=== PATIENT | male | born 1965 | race Caucasian/White ===

== ENCOUNTER 2019-02-11 11:05 | Emergency (ER) | payer SELFPAY ==
[~2019-02-11] VITALS: Ht 180.3 cm; Wt 88.5 kg
[2019-02-11 11:05] VITALS: BP 160/92
[~2019-02-11 11:05] MED LIST: AZIT1PAC9 PO; HYDR-3165 PO; [UNRECOGNIZED DRUG - CODE] PO
--- NOTE | 2019-02-11 11:28 | PHYS DOC ---
Past History Past Medical History: Bronchitis, Sinusitis Past Surgical History: No Surgical History Alcohol Use: None Drug Use: None Adult General Chief Complaint Chief Complaint: BACK PAIN OR INJURY HPI HPI Patient is a 53-year-old male who presents with complaint of primarily tailbone pain after falling from a ladder approximately 30 minutes prior to his arrival. Patient states that he had been up on a ladder cleaning leaves out of a gutter when the ladder started slipped out from underneath him and he had pushed back off the ladder and landed onto his buttocks. He does indicate he has small amount of pain in his lower back but mainly the pain is in his tailbone. He rates pain as fairly severe and states the pain is worsened with movement and walking.[] Review of Systems Review of Systems Constitutional: Denies fever or chills [] Respiratory: Denies cough or shortness of breath [] Cardiovascular: No additional information not addressed in HPI [] GI: Denies abdominal pain [] Musculoskeletal: Complains of tailbone pain [] Integument: Denies rash or skin lesions [] Neurologic: Denies headache, focal weakness or sensory changes [] Physical Exam Physical Exam Constitutional: Well developed, well nourished, no acute distress, non-toxic appearance. [] Neck: Normal range of motion, no tenderness, supple, no stridor. [] Cardiovascular:Heart rate regular rhythm, no murmur [] Lungs & Thorax: Bilateral breath sounds clear to auscultation [] Abdomen: Bowel sounds normal, soft, no tenderness. [] Back: No spinous point tenderness is noted on exam. There is tenderness around the right SI joint and around the sacrococcygeal junction. [] Extremities: No tenderness, no cyanosis, no clubbing, ROM intact, no edema. [] EKG EKG [] Radiology/Procedures Radiology/Procedures [] Impressions: PROCEDURE: CT LUMBAR SPINE WO CONTRAST CT study lumbar spine without contrast Clinical indications: Fall from ladder. Back pain. TECHNIQUE: Noncontrast helical CT scanning of the lumbar spine was performed. Multiplanar 2-D reconstructions were generated. PQRS compliance Statement One or more of the following individualized dose reduction techniques were utilized for this study: 1. Automated exposure control 2. Adjustment of the mA and/or kV according to patient size 3. Use of iterative reconstruction technique FINDINGS: No compression fracture or discitis or lytic process evident. No anterolisthesis or spondylolysis is seen. The transverse processes are intact. No focal disc protrusion or canal stenosis is evident. IMPRESSION: No acute fracture. Electronically signed by: Osman Riggs MD (02/11/2019 12:21 PM) [facility] Course & Med Decision Making Course & Med Decision Making Pertinent Labs and Imaging studies reviewed. (See chart for details) [] Dragon Disclaimer Dragon Disclaimer This electronic medical record was generated, in whole or in part, using a voice recognition dictation system. Departure Departure: Impression: Primary Impression: Contusion of coccyx Disposition: HOME, SELF-CARE Condition: STABLE Referrals: ASHISH BARNHART MD (PCP) Patient Instructions: Tailbone Injury Scripts Diclofenac Sodium (DICLOFENAC SODIUM) 50 Mg Tablet.dr 1 TAB PO BID PRN for PAIN, #20 TAB Prov: KALEB LOPEZ Jr. DO 02/11/19 Acetaminophen With Codeine (TYLENOL WITH CODEINE #3 TABLET) 1 Each Tablet 1 TAB PO Q4-6HRS PRN for PAIN, #12 TAB Prov: KALEB LOPEZ Jr. DO 02/11/19 Problem Qualifiers Primary Impression: Contusion of coccyx Encounter type: initial encounter Qualified Codes: S30.0XXA - Contusion of lower back and pelvis, initial encounter KALEB LOPEZ Jr. DO Feb 11, 2019 11:28
[2019-02-11] MEDS ORDERED: ONDANSETRON ODT 4 MG TAB.RAPDIS PO ONE (11:30)
--- NOTE | 2019-02-11 12:18 | RAD ---
CT stated pelvis without contrast Clinical indications: Fall from ladder. Pain. TECHNIQUE: Noncontrast helical CT scanning of the pelvis was performed. Multiplanar 2-D reconstructions were generated. PQRS compliance Statement One or more of the following individualized dose reduction techniques were utilized for this study: 1. Automated exposure control 2. Adjustment of the mA and/or kV according to patient size 3. Use of iterative reconstruction technique FINDINGS: No acute fracture is evident. The hip joints are symmetric and normally aligned. No diastases of the symphysis pubis or either SI joint is seen. No lytic process is evident. No enlarged pelvic lymphadenopathy is evident. No soft tissue mass or hematoma is evident. IMPRESSION: No acute abnormality. Electronically signed by: Osman Riggs MD (02/11/2019 12:15 PM) [facility]
--- NOTE | 2019-02-11 12:23 | RAD ---
CT study lumbar spine without contrast Clinical indications: Fall from ladder. Back pain. TECHNIQUE: Noncontrast helical CT scanning of the lumbar spine was performed. Multiplanar 2-D reconstructions were generated. PQRS compliance Statement One or more of the following individualized dose reduction techniques were utilized for this study: 1. Automated exposure control 2. Adjustment of the mA and/or kV according to patient size 3. Use of iterative reconstruction technique FINDINGS: No compression fracture or discitis or lytic process evident. No anterolisthesis or spondylolysis is seen. The transverse processes are intact. No focal disc protrusion or canal stenosis is evident. IMPRESSION: No acute fracture. Electronically signed by: Osman Riggs MD (02/11/2019 12:21 PM) [facility]
[2019-02-11] MEDS ORDERED: DICL50TA4 PO (12:32)
[2019-02-11] MEDS ORDERED: ACET-704 PO (12:32)
== END 2019-02-11 12:35 | disposition home or self-care (01) ==
LOC: MERGE 11:05 → ER 11:05
DX: S30.0XXA Contusion of lower back and pelvis, initial encounter (principal); W11.XXXA Fall on and from ladder, initial encounter; Y93.89 Activity, other specified; Y92.89 Other specified places as the place of occurrence of the external cause; Y99.8 Other external cause status
CPT/HCPCS: 72131; 72192; 96372; 99284; J3010; Q0162

== ENCOUNTER 2019-03-22 13:38 | Emergency (ER) | payer SELFPAY ==
[~2019-03-22] VITALS: Ht 180.3 cm; Wt 90.7 kg
[~2019-03-22 13:38] MED LIST changes: +ACET-704 PO; +DICL50TA4 PO
[2019-03-22 13:51] VITALS: BP 157/72
--- NOTE | 2019-03-22 14:01 | PHYS DOC ---
Past History Past Medical History: No Pertinent History Past Surgical History: No Surgical History Alcohol Use: None Drug Use: None Adult General Chief Complaint Chief Complaint: COUGH HPI HPI The patient is a pleasant 53-year-old male who presents for evaluation of cough and congestion which isn't bothering him for a few days. He tried Mucinex at home with little relief. He states the same thing happens to him usually about 2 times per year and that he sees his primary care doctor and as prescribed a Z- Wade, prednisone, and Tessalon Perles and seems to be better. He reports some sunitha al congestion as well. He is alert and oriented �4, calm, and appears to be no distress. He denies productive cough, chest pain, shortness of breath, hemoptysis, diaphoresis, nausea or vomiting, palpitations, dizziness or syncope. Review of Systems Review of Systems Constitutional: Denies fever or chills [] Eyes: Denies change in visual acuity, redness, or eye pain [] HENT: Denies sore throat []nasal congestion present Respiratory: Denies shortness of breath [] positive cough and congestion Cardiovascular: No additional information not addressed in HPI [] GI: Denies abdominal pain, nausea, vomiting, bloody stools or diarrhea [] : Denies dysuria or hematuria [] Musculoskeletal: Denies back pain or joint pain [] Integument: Denies rash or skin lesions [] Neurologic: Denies headache, focal weakness or sensory changes [] Endocrine: Denies polyuria or polydipsia [] All other systems were reviewed and found to be within normal limits, except as documented in this note. Allergies Allergies Allergies Coded Allergies Type Severity Reaction Last Updated Verified No Known Drug Allergies 09/27/15 No Physical Exam Physical Exam Constitutional: Well developed, well nourished, no acute distress, non-toxic appearance. [] HENT: Normocephalic, atraumatic, bilateral external ears normal, oropharynx moist, no oral exudates, nose normal. [] Eyes: PERRLA, EOMI, conjunctiva normal, no discharge. [] Neck: Normal range of motion, no tenderness, supple, no stridor. [] Cardiovascular:Heart rate regular rhythm, no murmur [] Lungs & Thorax: Bilateral breath sounds clear to auscultation []frequent coughing during exam Abdomen: Bowel sounds normal, soft, no tenderness, no masses, no pulsatile masses. [] Skin: Warm, dry, no erythema, no rash. [] Back: No tenderness, no CVA tenderness. [] Extremities: No tenderness, no cyanosis, no clubbing, ROM intact, no edema. [] Neurologic: Alert and oriented X 3, normal motor function, normal sensory function, no focal deficits noted. [] Psychologic: Affect normal, judgement normal, mood normal. [] Current Patient Data Vital Signs Vital Signs Date Time Temp Pulse Resp B/P (MAP) Pulse Ox O2 Delivery O2 Flow Rate FiO2 03/22/19 13:51 98.3 105 18 99 Room Air EKG EKG [] Radiology/Procedures Radiology/[place] [address] IMAGING REPORT Signed PATIENT: SASKIA STINSON ACCOUNT: [id number] : 1965 LOCATION: ER AGE: 53 SEX: M EXAM STATUS: REG ER ORD. PHYSICIAN: PURVI PETERSEN DO REASON: cough PROCEDURE: CHEST PA & LATERAL CHEST PA LATERAL History: Cough Comparison: None. Findings: 2 views of the chest are submitted. There is no dependent pleural fluid or pneumothorax. There is some subtle hazy right base airspace opacity which may be in the right middle lobe. Impression: 1. There is some subtle right base airspace opacity which may be in the right middle lobe, possible very mild infiltrate. Electronically signed by: Gunnar Wagner MD (03/22/2019 2:09 PM) [id number] DICTATED AND SIGNED BY: GUNNAR WAGNER MD DATE: 03/22/19 1409 CC: PURVI PETERSEN DO; ASHISH BARNHART MD ~ Course & Med Decision Making Course & Med Decision Making Pertinent Labs and Imaging studies reviewed. (See chart for details) [] Dragon Disclaimer Dragon Disclaimer This electronic medical record was generated, in whole or in part, using a voice recognition dictation system. Departure Departure: Impression: Primary Impression: Community acquired pneumonia Disposition: 01 HOME/RESIDENCE PRIOR TO ADM Condition: STABLE Referrals: ASHISH BARNHART MD (PCP) Patient Instructions: Pneumonia, Adult Additional Instructions: Take the prescribed medication as directed. Follow-up with your doctor next 2-3 days. Return for new or worsening symptoms. Scripts Prednisone (PREDNISONE) 20 Mg Tablet 1 TAB PO DAILY for cough, #5 TAB Prov: PURVI PETERSEN DO 03/22/19 Benzonatate (TESSALON PERLE) 100 Mg Capsule 1 CAP PO TID for cough, #21 CAP Prov: PURVI PETERSEN DO 03/22/19 Azithromycin (AZITHROMYCIN PACKET) 1 Gm Packet 1 PACKET PO ONCE for pneumonia, #1 PACKET Prov: PURVI PETERSEN DO 03/22/19 PURVI PETERSEN DO Mar 22, 2019 14:01
--- NOTE | 2019-03-22 14:12 | RAD ---
CHEST PA LATERAL History: Cough Comparison: None. Findings: 2 views of the chest are submitted. There is no dependent pleural fluid or pneumothorax. There is some subtle hazy right base airspace opacity which may be in the right middle lobe. Impression: 1. There is some subtle right base airspace opacity which may be in the right middle lobe, possible very mild infiltrate. Electronically signed by: Samy Jensen MD (03/22/2019 2:09 PM) [id number]
[2019-03-22] MEDS ORDERED: AZIT1PAC9 PO (14:41)
[2019-03-22] MEDS ORDERED: BENZ100C PO (14:41)
[2019-03-22] MEDS ORDERED: PRED20TA PO (14:41)
== END 2019-03-22 18:10 | disposition home or self-care (01) ==
LOC: ER 13:38
DX: J18.8 Other pneumonia, unspecified organism (principal)
CPT/HCPCS: 71046; 99284

== ENCOUNTER 2019-04-21 19:11 | Emergency (ER) | payer SELFPAY ==
[~2019-04-21] VITALS: Ht 180.3 cm; Wt 85.0 kg
[2019-04-21 19:11] VITALS: BP 151/89
[~2019-04-21 19:11] MED LIST changes: +BENZ100C PO; +PRED20TA PO
--- NOTE | 2019-04-21 19:23 | ED.ADGEN ---
Past History Past Medical History: No Pertinent History Past Surgical History: No Surgical History Alcohol Use: None Drug Use: None Adult General Chief Complaint Chief Complaint ".. I fractured this tooth. (30). it has got me a going.. why did I break it off now.. I will have to wait all weekend before I can see my dentist.. " HPI HPI Patient is a 54 year old male who presents with above hx and complaints of dental pain. Patient has fractured tooth 30. Patient complaining of severe pain. No pointing abscess. No history immunosuppression. No trismus. Patient normally healthy. Patient denies any travel or specific ill contacts. Patient states he is up-to-date with his tetanus vaccination. Review of Systems Review of Systems Constitutional: Denies fever or chills [] Eyes: Denies change in visual acuity, redness, or eye pain [] HENT: Denies nasal congestion or sore throat []complaints of fracture tooth #30 Respiratory: Denies cough or shortness of breath [] Cardiovascular: No additional information not addressed in HPI [] GI: Denies abdominal pain, nausea, vomiting, bloody stools or diarrhea [] : Denies dysuria or hematuria [] Musculoskeletal: Denies back pain or joint pain [] Integument: Denies rash or skin lesions [] Neurologic: Denies headache, focal weakness or sensory changes [] Endocrine: Denies polyuria or polydipsia [] All other systems were reviewed and found to be within normal limits, except as documented in this note. Family History Family History Noncontributory Current Medications Current Medications Current Medications Medications (Trade) Dose Ordered Sig/[facility] Start Time Stop Time Status Last Admin Dose Admin Cephalexin HCl (Keflex) 500 mg 1X ONCE 04/21/19 20:00 04/21/19 20:06 DC 04/21/19 20:09 500 MG Morphine Sulfate (Morphine 10mg Syringe) 10 mg 1X ONCE 04/21/19 20:00 04/21/19 20:06 DC 04/21/19 20:09 10 MG Allergies Allergies Allergies Coded Allergies Type Severity Reaction Last Updated Verified No Known Drug Allergies 09/27/15 No Physical Exam Physical Exam Constitutional: Well developed, well nourished, in acute distress, non-toxic appearance. [] HENT: Normocephalic, atraumatic, bilateral external ears normal, oropharynx moist, no oral exudates, nose normal. []Fractured tooth #30 no trismus Eyes: PERRLA, EOMI, conjunctiva normal, no discharge. [] Neck: Normal range of motion, no tenderness, supple, no stridor. [] Cardiovascular:Heart rate regular rhythm, no murmur [] Lungs & Thorax: Bilateral breath sounds clear to auscultation [] Abdomen: Bowel sounds normal, soft, no tenderness, no masses, no pulsatile masses. [] Skin: Warm, dry, no erythema, no rash. [] Back: No tenderness, no CVA tenderness. [] Extremities: No tenderness, no cyanosis, no clubbing, ROM intact, no edema. [] Neurologic: Alert and oriented X 3, normal motor function, normal sensory function, no focal deficits noted. [] Psychologic: Affect anxious, judgement normal, mood normal. [] Current Patient Data Vital Signs Vital Signs Date Time Temp Pulse Resp B/P (MAP) Pulse Ox O2 Delivery O2 Flow Rate FiO2 04/21/19 19:11 99.3 93 20 99 Room Air EKG EKG [] Radiology/Procedures Radiology/Procedures [] Course & Med Decision Making Course & Med Decision Making Pertinent Labs and Imaging studies reviewed. (See chart for details) Cover fx tooth with gum or calcium filler., Take Keflex 500 three times a day. Tylenol and ibuprofen for pain. For severe pain may take Vicoprofen up 4 times a day. Patient follow-up with dentist. Return if any concerns. [] Final Impression Final Impression 1. Dental Pain 2. Dental Fracture[] Tooth 30# Dragon Disclaimer Dragon Disclaimer This electronic medical record was generated, in whole or in part, using a voice recognition dictation system. Dragon Disclaimer This chart was dictated in whole or in part using Voice Recognition software in a busy, high-work load, and often noisy Emergency Department environment. It may contain unintended and wholly unrecognized errors or omissions. CRISTIAN GALICIA MD Apr 21, 2019 19:23
[2019-04-21] MEDS ORDERED: CEPH-264 PO (19:51)
[2019-04-21] MEDS ORDERED: HYDR-1179 PO (19:51)
[2019-04-21] MEDS ORDERED: CEPHALEXIN 250 MG CAPSULE PO ONE (20:00)
[2019-04-21] MEDS ORDERED: MORPHINE SULFATE 10 MG/ML SYRINGE. SQ ONE (20:00)
== END 2019-04-21 20:10 | disposition home or self-care (01) ==
LOC: ER 19:11
DX: S02.5XXA Fracture of tooth (traumatic), initial encounter for closed fracture (principal); X58.XXXA Exposure to other specified factors, initial encounter; Y93.89 Activity, other specified; Y92.89 Other specified places as the place of occurrence of the external cause; Y99.8 Other external cause status
CPT/HCPCS: 96372; 99283; J2270

== ENCOUNTER 2019-05-19 17:01 | Emergency (ER) | payer SELFPAY ==
[~2019-05-19] VITALS: Ht 180.3 cm; Wt 90.7 kg
[~2019-05-19 17:01] MED LIST changes: +CEPH-264 PO; +HYDR-1179 PO
[2019-05-19 17:32] VITALS: BP 152/81
[2019-05-19] MEDS ORDERED: HYDROcodone/APAP 5/325MG 1 TAB TABLET PO ONE (18:00)
[2019-05-19] MEDS ORDERED: KETOROLAC 30 MG/ML VIAL. IM ONE (18:00)
--- NOTE | 2019-05-19 18:14 | PHYS DOC ---
Past History Past Medical History: No Pertinent History Past Surgical History: No Surgical History Smoking: Non-smoker Alcohol Use: None Drug Use: None Adult General Chief Complaint Chief Complaint: MECHANICAL FALL HPI HPI Patient is a 54-year-old male presents complaining of tailbone pain. Approximately 60-90 minutes prior to arrival he was helping a neighbor bring an armoire down steps. Patient slipped approximately 4 steps from the bottom, landing on his tailbone on concrete floor. There was no loss of consciousness. No loss of bowel or bladder control. No head injury. No other injuries reported. Increased pain with movement. No home medicines have been taken. Pain is severe and sharp.[] Review of Systems Review of Systems Constitutional: Denies fever or chills [] Eyes: Denies change in visual acuity, redness, or eye pain [] HENT: Denies nasal congestion or sore throat [] Respiratory: Denies cough or shortness of breath [] Cardiovascular: No chest pain or palpitations[] GI: Denies abdominal pain, nausea, vomiting, bloody stools or diarrhea [] : Denies dysuria or hematuria [] Musculoskeletal: See history of present illness[] Integument: Denies rash or skin lesions [] Neurologic: Denies headache, focal weakness or sensory changes [] Endocrine: Denies polyuria or polydipsia [] All other systems were reviewed and found to be within normal limits, except as documented in this note. Current Medications Current Medications Current Medications Medications (Trade) Dose Ordered Sig/[facility] Start Time Stop Time Status Last Admin Dose Admin Acetaminophen/ Hydrocodone Bitart (Lortab 5/325) 2 tab 1X ONCE 05/19/19 18:00 05/19/19 18:09 DC 05/19/19 18:00 2 TAB Ketorolac Tromethamine (Toradol 30mg Vial) 30 mg 1X ONCE 05/19/19 18:00 05/19/19 18:09 DC 05/19/19 18:00 30 MG Allergies Allergies Allergies Coded Allergies Type Severity Reaction Last Updated Verified No Known Drug Allergies 09/27/15 No Physical Exam Physical Exam Constitutional: Well developed, well nourished, moderate distress, pacing, non- toxic appearance. [] HENT: Normocephalic, atraumatic, bilateral external ears normal, oropharynx moist, no oral exudates, nose normal. [] Eyes: PERRLA, EOMI, conjunctiva normal, no discharge. [] Neck: Normal range of motion, no tenderness, supple, no stridor. [] Cardiovascular:Heart rate regular rhythm, no murmur [] Lungs & Thorax: Bilateral breath sounds clear to auscultation [] Abdomen: Bowel sounds normal, soft, no tenderness, no masses, no pulsatile masses. [] Skin: Warm, dry, no erythema, no rash. [] Back: Tender lower sacral/coccygeal region. No bruising. No crepitus. Normal gait. no CVA tenderness. [] Extremities: No tenderness, no cyanosis, no clubbing, ROM intact, no edema. [] Neurologic: Alert and oriented X 3, normal motor function, normal sensory function, no focal deficits noted. [] Psychologic: Affect normal, judgement normal, mood normal. [] Current Patient Data Vital Signs Vital Signs Date Time Temp Pulse Resp B/P (MAP) Pulse Ox O2 Delivery O2 Flow Rate FiO2 05/19/19 18:00 18 Room Air 05/19/19 17:32 99.7 105 98 EKG EKG [] Radiology/Procedures Radiology/Procedures Lumbar spine x-rays 3 views HISTORY: Fall with lower back pain. FINDINGS: Lumbar vertebral body height and alignment intact. No fracture evident. Mild posterior disc space narrowing at L5-S1. Facet spurring lower lumbar spine. IMPRESSION: No acute osseous injury. Lumbosacral disc disease. Lower lumbar spine facet arthritis. Sacrum and coccyx x-rays 3 views HISTORY: Fall, lower back pain and coccyx pain. COMPARISON: X-rays May 10, 2016. 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 No acute fracture. Sacroiliac joints intact. No ankylosis arthrosis or diastases of the sacroiliac joints. Mild facet spurring L4-L5 and L5-S1 lower lumbar spine. IMPRESSION: No acute osseous injury.[] Course & Med Decision Making Course & Med Decision Making Pertinent Labs and Imaging studies reviewed. (See chart for details) ED course: Patient arrived, was placed in bed, and tolerated exam well. He was transported to and from radiology. He was given pain medicines. After the return of the imaging findings, these were discussed with the patient voiced understanding. All questions were answered. He was discharged in improved condition. Medical decision making: There is no evidence of a fracture, cauda equina syndrome, subluxation, nor any other significant impairment.[] Dragon Disclaimer Dragon Disclaimer This electronic medical record was generated, in whole or in part, using a voice recognition dictation system. Departure Departure: Impression: Primary Impression: Sacral contusion Disposition: HOME, SELF-CARE Condition: IMPROVED Referrals: ASHISH BARNHART MD (PCP) Follow-up in 2 days Patient Instructions: Contusion Additional Instructions: Follow-up with your regular doctor in 2 days. Apply warm compresses for 15 minutes at a time, at least 4 times a day. Return to the ER if worsening pain or any other concerns. Scripts Orphenadrine Citrate (ORPHENADRINE CITRATE) 100 Mg Tablet.er 100 MG PO BID for BACK PAIN, #20 TAB.SR Prov: SANDY BRIGHT DO 05/19/19 Hydrocodone Bit/Acetaminophen (NORCO 5-325 TABLET) 1 Each Tablet 1 TAB PO Q4-6HRS for severe pain, #20 TAB Prov: SANDY BRIGHT DO 05/19/19 Meloxicam (MELOXICAM) 7.5 Mg Tablet 7.5 MG PO DAILY for PAIN, #20 TAB Prov: SANDY BRIGHT DO 05/19/19 Problem Qualifiers Primary Impression: Sacral contusion Encounter type: initial encounter Qualified Codes: S30.0XXA - Contusion of lower back and pelvis, initial encounter SANDY BRIGHT DO May 19, 2019 18:14
--- NOTE | 2019-05-19 19:00 | RAD ---
Lumbar spine x-rays 3 views HISTORY: Fall with lower back pain. FINDINGS: Lumbar vertebral body height and alignment intact. No fracture evident. Mild posterior disc space narrowing at L5-S1. Facet spurring lower lumbar spine. IMPRESSION: No acute osseous injury. Lumbosacral disc disease. Lower lumbar spine facet arthritis. Sacrum and coccyx x-rays 3 views HISTORY: Fall, lower back pain and coccyx pain. COMPARISON: X-rays May 10, 2016. 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 No acute fracture. Sacroiliac joints intact. No ankylosis arthrosis or diastases of the sacroiliac joints. Mild facet spurring L4-L5 and L5-S1 lower lumbar spine. IMPRESSION: No acute osseous injury. Electronically signed by: Phu Diallo MD (05/19/2019 6:57 PM) [facility]
[2019-05-19] MEDS ORDERED: MELO7.5T29 PO (19:23)
[2019-05-19] MEDS ORDERED: HYDR-3165 PO (19:23)
[2019-05-19] MEDS ORDERED: ORPH-16 PO (19:23)
== END 2019-05-19 19:26 | disposition home or self-care (01) ==
LOC: ER 17:01
DX: S30.0XXA Contusion of lower back and pelvis, initial encounter (principal); W10.8XXA Fall (on) (from) other stairs and steps, initial encounter; Y93.89 Activity, other specified; Y92.89 Other specified places as the place of occurrence of the external cause; Y99.8 Other external cause status
CPT/HCPCS: 72100; 72220; 96372; 99284; J1885

== ENCOUNTER 2019-06-10 12:46 | Emergency (ER) | payer SELFPAY ==
[~2019-06-10 12:46] MED LIST changes: +MELO7.5T29 PO; +ORPH-16 PO
[2019-06-10 13:03] VITALS: BP 126/90
[2019-06-10] MEDS ORDERED: DEXAMETHASONE 4 MG TABLET PO ONE (13:15)
[2019-06-10] MEDS ORDERED: PRED20TA PO (13:34)
[2019-06-10] MEDS ORDERED: AZIT250T6 PO (13:34)
[2019-06-10] MEDS ORDERED: CODE10LI PO (13:34)
--- NOTE | 2019-06-10 13:34 | PHYS DOC ---
Past History Past Medical History: No Pertinent History Past Surgical History: No Surgical History Smoking: Non-smoker Alcohol Use: None Drug Use: None Adult General Chief Complaint Chief Complaint: COUGH HPI HPI Patient is a [age] year old [sex] who presents with [] Review of Systems Review of Systems Constitutional: Denies fever or chills [] Eyes: Denies change in visual acuity, redness, or eye pain [] HENT: Denies nasal congestion or sore throat [] Respiratory: Denies cough or shortness of breath [] Cardiovascular: No additional information not addressed in HPI [] GI: Denies abdominal pain, nausea, vomiting, bloody stools or diarrhea [] : Denies dysuria or hematuria [] Musculoskeletal: Denies back pain or joint pain [] Integument: Denies rash or skin lesions [] Neurologic: Denies headache, focal weakness or sensory changes [] Endocrine: Denies polyuria or polydipsia [] All other systems were reviewed and found to be within normal limits, except as documented in this note. Current Medications Current Medications Current Medications Medications (Trade) Dose Ordered Sig/Valeriy Start Time Stop Time Status Last Admin Dose Admin Dexamethasone (Decadron) 10 mg 1X ONCE 06/10/19 13:15 06/10/19 13:18 DC Allergies Allergies Allergies Coded Allergies Type Severity Reaction Last Updated Verified No Known Drug Allergies 09/27/15 No Physical Exam Physical Exam Constitutional: Well developed, well nourished, no acute distress, non-toxic appearance. [] HENT: Normocephalic, atraumatic, bilateral external ears normal, oropharynx moist, no oral exudates, nose normal. [] Eyes: PERRLA, EOMI, conjunctiva normal, no discharge. [] Neck: Normal range of motion, no tenderness, supple, no stridor. [] Cardiovascular:Heart rate regular rhythm, no murmur [] Lungs & Thorax: Bilateral breath sounds clear to auscultation [] Abdomen: Bowel sounds normal, soft, no tenderness, no masses, no pulsatile masses. [] Skin: Warm, dry, no erythema, no rash. [] Back: No tenderness, no CVA tenderness. [] Extremities: No tenderness, no cyanosis, no clubbing, ROM intact, no edema. [] Neurologic: Alert and oriented X 3, normal motor function, normal sensory function, no focal deficits noted. [] Psychologic: Affect normal, judgement normal, mood normal. [] Current Patient Data Vital Signs Vital Signs Date Time Temp Pulse Resp B/P (MAP) Pulse Ox O2 Delivery O2 Flow Rate FiO2 06/10/19 13:03 98.2 84 18 100 Room Air EKG EKG [] Radiology/Procedures Radiology/Procedures [] Course & Med Decision Making Course & Med Decision Making Pertinent Labs and Imaging studies reviewed. (See chart for details) [] Dragon Disclaimer Dragon Disclaimer This electronic medical record was generated, in whole or in part, using a voice recognition dictation system. Departure Departure: Impression: Primary Impression: Bronchitis Disposition: AGAINST MEDICAL ADVICE (secondary to [employer] policy for self pay [employer]) Condition: STABLE Referrals: ASHISH BARNHART MD (PCP) Patient Instructions: Acute Bronchitis, [id number] Script[facility] Codeine Phosphate/Guaifenesin (Guaifen-Codeine 200-20 mg/10Ml) 10 Ml Liquid 10 ML PO Q6HRS PRN for COUGH, #100 ML Prov: PATSY THOMPSON DO 06/10/19 Prednisone (PREDNISONE) 20 Mg Tablet 1 TAB PO DAILY for Bronchitis, #8 TAB Start this prescription tomorrow, Wednesday06/11/19 Prov: PATSY THOMPSON DO 06/10/19 Azithromycin (AZITHROMYCIN TABLET) 250 Mg Tablet 1 PKG PO UD for bronchitis, #6 TAB Take 2 tablets today and then one tablet every day thereafter for the next 4 days Prov: PATSY THOMPSON DO 06/10/19 PATSY THOMPSON DO Jun 10, 2019 13:34
--- NOTE | 2019-06-10 13:38 | RAD ---
CHEST PA LATERAL History: Cough. 03/22/2019. FINDINGS: Cardiomediastinal silhouettes are not enlarged and appears stable. No evidence of pneumothorax. No pleural effusion. No evidence of focal infiltrate. Bones are intact. IMPRESSION: No evidence of consolidating infiltrate. Electronically signed by: Nash Wright MD (06/10/2019 1:35 PM) [facility]
== END 2019-06-10 13:35 | disposition left against medical advice (07) ==
LOC: ER 12:46
DX: J40 Bronchitis, not specified as acute or chronic (principal)
CPT/HCPCS: 71046; 99284